=== PATIENT | male | born 1970 | race Caucasian/White ===

== ENCOUNTER 2018-10-31 19:06 | Inpatient (IN) | payer OTHER ==
[~2018-10-31] VITALS: Ht 185.4 cm; Wt 110.0 kg
[~2018-10-31 19:06] MED LIST: NO HOME MEDICATIONS
[2018-10-31 19:53] LABS: ALANINE AMINOTRANSFERASE 24 U/L (21-72); ALBUMIN 4.7 gm/dL (3.5-5.0); ALKALINE PHOSPHATASE 73 U/L (50-136); ANION GAP 10 mmol/L (7-16); AST,SGOT 23 U/L (15-37); BILIRUBIN,TOTAL 1.3 mg/dL (0.0-1.0); BLOOD UREA NITROGEN 11 mg/dL (9-20); CALCIUM 9.1 mg/dL (8.4-10.2); CARBON DIOXIDE 27 mmol/L (22-30); CHLORIDE 103 mmol/L (98-107); CREATININE, serum 0.87 mg/dL (0.66-1.25); GLUCOSE 105 mg/dL (74-106); POTASSIUM 3.7 mmol/L (3.4-5.0); SODIUM 140 mmol/L (137-145); TOTAL PROTEIN 8.1 gm/dL (6.4-8.2)
[2018-10-31 20:05] LABS: TROPONIN-I < 0.012 ng/mL (0.000-0.035)
[2018-10-31 20:32] LABS: BASO % 0.5 % (0.0-2.0); EOS # 0.1 (0.0-0.7); EOS % 1.4 % (0-4.0); GRAN # 2.8 (1.4-6.5); GRAN % 42.2 % (42.2-75.2); HEMATOCRIT 45.2 % (42.0-52.0); HEMOGLOBIN 16.2 g/dl (13.5-18.0); LYMPH # 3.1 (1.2-3.4); LYMPH % 48.2 % (20.0-51.0); MEAN CELL VOLUME 83 fl (80.0-100.0); MEAN CORPUSCULAR HEMOGLOBIN 30 pg (27.0-31.0); MEAN CORPUSCULAR HGB CONC 36 g/dl (33.0-37.0); MEAN PLATELET VOLUME 9.3 fl (7.4-10.4); MONO # 0.5 (0.1-0.6); MONO % 7.4 % (1.7-9.3); PLATELET COUNT 256 K/mm3 (130-400); RED BLOOD COUNT 5.44 M/mm3 (4.20-5.60); REDCELL DISTRIBUTION WIDTH-CV 12.1 % (11.5-14.5)
[2018-11-01] VITALS (11 sets, daily range): BP systolic 115–141; BP diastolic 65–78; PULSE 52–85; TEMP 96.9–97.8
[2018-11-01] MEDS ORDERED: ASPIRIN 81M81 MG/TA2 PO (01:16)
--- NOTE | 2018-11-01 01:35 | NUR ---
Completed assessment and admission of PT; PT complaining of pain and discomfort the left chest and ABD that radiates to the right ABD; Acute complaint of headache; PT A&Ox3, BS active x4, LCTAB, IND with SBA d/t medication; spouse Ana Paula present in room; minimal personal belongings present; PT NPO with possible order for zia r/t gallstones; No further needs at time of exit; PT placed in comfortable position in bed with call light within reach; Will continue to monitor. CDA
--- NOTE | 2018-11-01 03:11 | NUR ---
PT is resting well in bed; IV running at 125ml/hr to right forearm; no visble or reported pain at this time as PT is resting and spouse is resting in recliner in room; No further assessed needs at this time; call light within reach; Will continue to monitor. CDA
--- NOTE | 2018-11-01 07:14 | NUR ---
Report given to WILLAM Pratt. CDA
--- NOTE | 2018-11-01 09:58 | NUR ---
Plan: To return marika with Ana Paula as care support. Assess: Patient reports as DPOA, and he uses CPAP at home. PCP is Dr. Walters at [facility] in [place]. Patient reports residing in [place] but uses [facility] for RX. Patient denies having any care concerns, or any other DME. will transport home. Action: No additonal needs identified.
--- NOTE | 2018-11-01 10:30 | NUR ---
Dr. Olsen saw patient. IV antibiotic infusing. Surgical consent signed. To OR per bed with OR staff. Spouse here.
--- NOTE | 2018-11-01 10:57 | NUR ---
patient was sleeping.
--- NOTE | 2018-11-01 13:10 | NUR ---
Received patient from PACU per bed. Drowsy. No c/o pain or nausea. Bandaids CDI to abdomen. VSS. Spouse at bedside.
--- NOTE | 2018-11-01 18:00 | NUR ---
Pain improved with prn Morphine. Took po fluids and food. Ambulated in halls with spouse. VSS.
[2018-11-01] MEDS ORDERED: NORCO 325 MG-51 TAB PO (18:17)
--- NOTE | 2018-11-01 19:30 | NUR ---
Denied need for pain med. Reynolds home pack given since pharmacy closed. Home instructions and prescription given. Dismissed to home per w/c with spouse.
== END 2018-11-01 19:30 | disposition home or self-care (01) | DRG 419 ==
LOC: COL.ER 19:06 → SURG 23:10
PROVIDERS: Emergency Medicine; ADMIT Surgery
PROC: BF101ZZ Fluoroscopy of Bile Ducts using Low Osmolar Contrast (ICD-10-PCS; 2018-11-01)
PROC: 0FT44ZZ Resection of Gallbladder, Percutaneous Endoscopic Approach (ICD-10-PCS; principal; 2018-11-01 10:33)
DX: K80.12 Calculus of gallbladder with acute and chronic cholecystitis without obstruction (principal)
CPT/HCPCS: J0330; J1100; J1170; J1885; J1956; J2250; J2270; J2405; J2550; J2704; J3010; J7030; J7120; Q9967

== ENCOUNTER 2020-12-12 09:36 | Emergency (ER) | payer OTHER ==
[~2020-12-12] VITALS: Ht 185.4 cm; Wt 109.1 kg
[~2020-12-12 09:36] MED LIST changes: +ASPIRIN 81M81 MG/TA2 PO; +NORCO 325 MG-51 TAB PO
[2020-12-12 09:48] VITALS: TEMP 98.2
[2020-12-12] MEDS ORDERED: PRINIVIL10 MG PO (10:07)
[2020-12-12 10:22] LABS: ALANINE AMINOTRANSFERASE 28 U/L (4-49); ALBUMIN 4.8 gm/dL (3.5-5.0); ALKALINE PHOSPHATASE 58 U/L (50-136); ANION GAP 9 mmol/L (7-16); AST,SGOT 28 U/L (15-37); BILIRUBIN,TOTAL 1.5 mg/dL (0.0-1.0); BLOOD UREA NITROGEN 10 mg/dL (9-20); CALCIUM 9.5 mg/dL (8.4-10.2); CARBON DIOXIDE 29 mmol/L (22-30); CHLORIDE 101 mmol/L (98-107); CREATININE, serum 0.78 (0.66-1.25); GLUCOSE 94 mg/dL (74-106); POTASSIUM 3.8 mmol/L (3.4-5.0); SODIUM 139 mmol/L (137-145); TOTAL PROTEIN 8.9 gm/dL (6.4-8.2)
[2020-12-12 10:35] LABS: TROPONIN-I < 0.012 ng/mL (0.000-0.035)
[2020-12-12 10:36] LABS: BASO % 0.3 % (0.0-2.0); EOS # 0.1 (0.0-0.7); EOS % 0.8 % (0-4.0); GRAN # 3.9 (1.4-6.5); GRAN % 63.7 % (42.2-75.2); HEMATOCRIT 47.4 % (42.0-52.0); HEMOGLOBIN 16.2 g/dl (13.5-18.0); INR 1.1 (0.8-3.0); LYMPH # 1.4 (1.2-3.4); LYMPH % 22.6 % (20.0-51.0); MEAN CELL VOLUME 86 fl (80.0-100.0); MEAN CORPUSCULAR HEMOGLOBIN 29 pg (27.0-31.0); MEAN CORPUSCULAR HGB CONC 34 g/dl (33.0-37.0); MEAN PLATELET VOLUME 9.7 fl (7.4-10.4); MONO # 0.8 (0.1-0.6); MONO % 12.4 % (1.7-9.3); PLATELET COUNT 205 K/mm3 (130-400); PROTHROMBIN TIME 11.8 SECONDS (9.7-12.8); RED BLOOD COUNT 5.52 M/mm3 (4.20-5.60); REDCELL DISTRIBUTION WIDTH-CV 12.1 % (11.5-14.5)
[2020-12-12 10:39] LABS: PARTIAL THROMBOPLASTIN TIME 33.6 SECONDS (26.0-37.0)
[2020-12-12 11:59] VITALS: BP 149/86; PULSE 62
== END 2020-12-12 11:57 | disposition home or self-care (01) ==
LOC: COL.ER 09:36
PROVIDERS: Emergency Medicine
DX: R04.2 Hemoptysis (principal); Z88.1 Allergy status to other antibiotic agents; Z88.8 Allergy status to other drugs, medicaments and biological substances; Z79.82 Long term (current) use of aspirin
CPT/HCPCS: J2405; J7030; Q9967

== ENCOUNTER 2023-11-11 08:45 | Day surgery (SDC) | payer OTHER ==
[~2023-11-11] VITALS: Ht 185.4 cm; Wt 112.5 kg
[~2023-11-11 08:45] MED LIST changes: +LR 1,000 ML IV SCH; +Ondansetron 4 MG/2 ML VIAL IV PRN; +PRINIVIL10 MG PO
--- NOTE | 2023-11-11 09:07 | NUR ---
Pt arrived with , ELROY WNL, reveiwed and signed consents, reviewed meds/pharm/allergies/history; to place IV and await procedure.
[2023-11-11 09:45] VITALS: BP 155/100; PULSE 58; TEMP 98.7
[2023-11-11 11:08] VITALS: BP 136/87; PULSE 57
[2023-11-11 11:17] VITALS: BP 131/85; PULSE 61
[2023-11-11 11:30] VITALS: BP 131/83; PULSE 61
--- NOTE | 2023-11-11 11:33 | NUR ---
1108 PATIENT RETURNS TO [facility] VIA CART. PT AWAKE AND ALERT. RESPIRATIONS UNLABORED. AMBULATED TO RECLINER CHAIR WITH 2:1 SBA. PT DENIES NAUSEA OR ABDOMINAL PAIN. HOOKED UP TO MONITOR AND VS OBTAINED. CALL LIGHT AT SIDE AND PRESENT. 1110 PATIENT TOLERATING COFFEE/WATER AND MUFFIN WITHOUT NAUSEA OR DIFFICULTY SWALLOWING (EGD ONLY). 1115 DR. HARVEY IN ROOM SPEAKING WITH PATIENT. 1125 D/C INSTRUCTIONS REVIEWED WITH PATIENT. PT VERBALIZED UNDERSTANDING AND A COPY OF INSTRUCTIONS PROVIDED IN D/C FOLDER. 1130 PATIENT DRESSES SELF. 1135 PATIENT DISCHARGED FROM UNIT VIA W/C TO A PERSONAL VEHICLE. PT LEFT HOSPITAL IN STABLE CONDITION.
== END 2023-11-11 11:35 | disposition home or self-care (01) ==
LOC: SDCO 08:45
DX: Z12.11 Encounter for screening for malignant neoplasm of colon (principal); K64.0 First degree hemorrhoids; G47.33 Obstructive sleep apnea (adult) (pediatric)
CPT/HCPCS: J2704; J7120